=== PATIENT | female | born 1960 | race Caucasian/White ===

== ENCOUNTER → 2020-01-15 | Outpatient (CLI) | payer OTHER ==
[~2020-01-15] MED LIST: ASPIR 8181 MG PO; BENAZEPRIL-HCT1 EA11 PO; CALCIUM 600 +1 EAC1 PO; CEFDINIR300 MG PO; CIPRO500 MG PO; DIFLUCAN100 MG PO; ENOXAPARIN30 MG/0.1 SUBQ; FLAGYL500 MG PO; FOLGARD TABLET1 EAC1 PO; FUROSEMIDE 20 M20 MG PO; HYDROCODON-ACE1 EAC7 PO; HYDROCODONE-AP1 EAC6 PO; HYDROXYCHLOROQ200 M1 PO; KRILL OIL 3001 EACH PO; MOBIC15 MG PO; MULTIVITAMINS1 EAC7 PO; NAPROSYN500 MG PO; NORCO 5-325 TA1 EACH PO; NORVASC 5 MG TAB5 MG PO; NYSTATIN 1100000 U/M SW&SWALLOW; PATADAY2.5 ML OPHTHALMIC; POTASSIUM20 PO; REGLAN 5 MG TAB5 MG PO; TUMS; VITAMIN D 5050000 I1; VITAMIN D5000 UNIT PO; VITAMINC500 PO; ZANTAC 150MG T150 MG PO; ZOFRAN 4 MG ORAL4 MG PO; ZYRTEC10 MG PO; [UNRECOGNIZED DRUG - OTHER]
== END ==
LOC: CAT 13:54
PROVIDERS: ATTEND Internal Medicine Cardiovascular Disease
DX: Z13.6 Encounter for screening for cardiovascular disorders (principal); E78.00 Pure hypercholesterolemia, unspecified; I25.10 Atherosclerotic heart disease of native coronary artery without angina pectoris

== ENCOUNTER → 2020-07-26 | Outpatient (CLI) | payer OTHER | LOC: SJCVCIMAG 09:58 | PROVIDERS: ATTEND Internal Medicine Cardiovascular Disease | DX: M79.604 Pain in right leg (principal); M79.605 Pain in left leg; M79.89 Other specified soft tissue disorders; R06.00 Dyspnea, unspecified; E78.5 Hyperlipidemia, unspecified; R60.9 Edema, unspecified; I10 Essential (primary) hypertension; Z82.49 Family history of ischemic heart disease and other diseases of the circulatory system ==